=== PATIENT | male | born 1975 | race Caucasian/White ===

== ENCOUNTER 2024-07-10 10:30 | Outpatient (CLI) | payer BC, SELFPAY ==
[2024-07-10 18:39] LABS: Basophils # 0.1 K/mm3 (0-0.2); Eosinophils # 0.3 K/mm3 (0.0-0.4); Eosinophils % 3.2 % (0.1-12.0); Hemoglobin 16.2 g/dL (14.1-18.0); Lymphocytes # 2.3 K/mm3 (0.7-4.5); Lymphocytes % 23.5 % (10-50); Mean Corpuscular HGB Conc 32.3 g/dL (31.8-35.4); Mean Corpuscular Hemoglobin 30.9 pg (27.0-31.2); Mean Corpuscular Volume 95.7 fl (80-94); Mean Platelet Volume 11.5 fl (7.4-10.4); Monocytes # 0.3 K/mm3 (0.1-1.0); Monocytes % 2.6 % (1.7-9.3); Neutrophils # 6.9 K/mm3 (1.8-7.8); Neutrophils % 69.8 % (37.0-80.0); Platelet Count 90 K/mm3 (142-424); Red Blood Count 5.23 M/mm3 (4.60-6.20); Red Cell Distribution Width 14.2 % (11.5-17.5)
[2024-07-10 19:23] LABS: Alanine Aminotransferase 44 U/L (12-78); Albumin/Globulin Ratio 1.2 (1.1-1.8); Alkaline Phosphatase 92 U/L (38-126); Aspartate Amino Transferase 40 U/L (17-59); Bilirubin,Total 0.8 mg/dl (0.2-1.3); Blood Urea Nitrogen 16 mg/dl (9-20); Calcium 9.2 mg/dl (8.4-10.2); Carbon Dioxide 29 mmol/L (22.0-30.0); Chloride 103 mmol/L (98-107); Chol/HDL Ratio 3.9 (1-3.5); Cholesterol 228 mg/dl (140-200); Estimated Glomerular Filt Rate 90 ml/min (>60); GFR (African American) 109 ML/MIN (>60); Globulin 3.3 g/dL (1.3-3.2); Glucose 92 mg/dl (74-100); HDL Cholesterol 58 mg/dl (40-60); Sodium 139 mmol/L (136-145); Total Protein,Serum 7.3 g/dl (6.3-8.2); Triglycerides 135 mg/dl (30-150); VLDL Cholesterol 27 mg/dL (0-40)
[2024-07-10 19:34] LABS: Direct LDL Cholesterol 135.45 mg/dL (100-129)
[2024-07-10 19:39] LABS: 25-OH Vitamin D, Total 17.8 ng/mL (30-100)
[2024-07-10 19:40] LABS: T4 (Thyroxine) 9.8 ug/dl (5.53-11.0)
[2024-07-10 19:53] LABS: Thyroid Stimulating Hormone 1.61 uIU/mL (0.465-4.68)
[2024-07-19 22:07] LABS: Testosterone, Total, LC/MS 220 ng/dL (.)
== END 2024-07-10 23:59 | disposition home or self-care (01) ==
LOC: LAB.DROPOF 07-13 10:30
PROVIDERS: PCP Nurse Practitioner Family; Visit Provider Nurse Practitioner Family
DX: Z76.89 Persons encountering health services in other specified circumstances (principal)
CPT/HCPCS: 80050; 80053; 80061; 82306; 84403; 84436; 84443; 85025

== ENCOUNTER 2024-07-23 15:14 | Outpatient (CLI) | payer BC, SELFPAY ==
--- NOTE | 2024-07-23 15:19 | CA_ITS ---
APPROVED REPORT EXAM: Comprehensive 2D, Doppler, and color-flow Echocardiogram [employer] Courtesy Clerk: May Coreas, KEON, RVS Ht: 5 ft 9 in Wt: 300lbs BSA: 2.45 BP: 138/80 mmHg Indications: SOA, HTN, Asthma 2D Dimensions IVSd 1.33 cm LVEF (Visual) 50.70 % PWd 1.40 cm LVEF (Gordillo's) 57.10 % LVDd 4.62 cm LV Volume 111.30 mL LVDs 3.43 cm LV Volume Index 45.623182 mL/m2 M: 34 - 74 Aortic Root 3.05 cm LA Volume 65.50 mL Left Atrium 3.57 cm LA Volume Index 26.843329 mL/m2 (M/F) 16-34 RVID Base (AP4) 3.64 cm (M/F) 2.5-4.1 EF AP4 48.60 % LVOT 2.13 cm (M/F) 1.5-2.5 EF AP2 61.5 % EF BP 57.1 % GL Strain -18.8 % M-Mode Dimensions LVDd 4.62 cm (3.5-5.7) Ao Diam 3.07 cm (2.0-3.7) LVDs 3.43 cm (3.5-5.7) IVSd 1.33 cm (0.6-1.1) PWd 1.40 cm (0.6-1.1) EPSs 0.72 cm FS 25.80% TAPSE 2.54 (<1.7) LV Diastology E Decel Time 200 (160-240 msec) E/A Ratio 0.79 MED E' 8.1 (>= 7 cm/sec) MED A' 10.40 cm/s E'/MED E' Ratio 8.02 (<= 14) LAT E' 12.4 (>= 10 cm/sec) LAT A' 9.40 cm/s E/LAT E' Ratio 5.24 (<= 14) Aortic Valve LVOT Max 107.0 (70-110 cm/s) TORIE Index 0.94 cm2/m2 LVOT VTI 17.85 cm AoV Peak Terence. 154.0 (50-130 cm/s) AO Mean GR. 4.70 (<5 mmHg) AO VTI 27.5 (18-25 cm) TORIE (VTI) 2.31 (2.5-4.5 cm2) Mitral Valve MV E Max Terence. 65.0 (40-130 cm/s) MV A Velocity 83.0 (40-130 cm/s) E/A Ratio 0.79 MV Decel. Time 200 (160-240 ms) MV Mean Gr. 1.90 (<2mmHg) Tricuspid Valve TR P. Velocity 186.00 cm/s Left Ventricle The left ventricle is normal size. The left ventricular systolic function is normal. The left ventricular ejection fraction is within the normal range. There is increased LV wall thickness. There is normal LV segmental wall motion. Transmitral Doppler flow pattern suggests impaired LV relaxation. LVEF is 50-55%. Right Ventricle The right ventricle is mildly dilated. The right ventricular systolic function is normal. Atria The left atrium size is normal. The right atrium size is normal. There is no Doppler evidence of interatrial shunt. Aortic Valve The aortic valve opens well. There is no aortic valvular stenosis. No aortic regurgitation is present. Mitral Valve The mitral valve is normal in structure. No evidence of mitral valve stenosis. Trace mitral valve regurgitation noted. Tricuspid Valve The tricuspid valve leaflets are thin and pliable. Trace tricuspid regurgitation. There is insufficient TR jet to estimate RVSP. Pulmonic Valve The pulmonary valve is normal in structure. Trace pulmonic regurgitation. Great Vessels The aortic root is normal in size. The ascending aorta is not well-visualized. IVC is normal in size and collapses >50% with inspiration. Pericardium There is no pericardial effusion. Other Information Study Quality: Technically Difficult Conclusion Technically difficult study due to poor acoustic windows. Normal biventricular systolic function. Mild RV dilation. No significant valvular stenosis or regurgitation. Due to technically difficult study, future TTEs are suggested with ultrasound enhancing agent to better delineate the endocardial LV borders. Electronically signed by : Marcella Brock MD 07/29/2024 11:37:36
== END 2024-07-23 23:59 | disposition home or self-care (01) ==
LOC: RT 15:15
PROVIDERS: PCP Nurse Practitioner Family; Visit Provider Nurse Practitioner Family
DX: R06.02 Shortness of breath (principal); I10 Essential (primary) hypertension
CPT/HCPCS: 93306

== ENCOUNTER 2024-08-07 09:54 | Outpatient (CLI) | payer BC, SELFPAY ==
[2024-08-20 17:11] LABS: Testosterone, Total, LC/MS 144 ng/dL (.)
== END 2024-08-07 23:59 | disposition home or self-care (01) ==
LOC: LAB.DROPOF 08-10 09:54
PROVIDERS: PCP Nurse Practitioner Family; Visit Provider Nurse Practitioner Family
DX: R79.89 Other specified abnormal findings of blood chemistry (principal)
CPT/HCPCS: 84403

== ENCOUNTER 2024-11-16 13:38 | Outpatient (CLI) | payer BC, SELFPAY ==
--- NOTE | 2024-11-16 13:42 | XR_ITS ---
FINAL REPORT CLINICAL HISTORY: Left Hip Pain COMPARISON: None FINDINGS: AP and frog leg views of the left hip were obtained. There is no acute fracture or dislocation. Degenerative joint disease is present. Soft tissues are unremarkable. IMPRESSION: Degenerative joint disease, with no acute osseous abnormality of the left hip. Reviewed, Interpreted and Dictated by Scarlett Méndez MD Transcribed by Berkley Bingham Authenticated and [facility]
== END 2024-11-16 23:59 | disposition home or self-care (01) ==
LOC: RAD 13:40
PROVIDERS: PCP Nurse Practitioner Family; Visit Provider Physician Assistant
DX: M25.552 Pain in left hip (principal)
CPT/HCPCS: 73502

== ENCOUNTER 2025-01-26 11:02 | Outpatient (CLI) | payer BC, SELFPAY ==
--- NOTE | 2025-01-26 11:09 | XR_ITS ---
FINAL REPORT CLINICAL HISTORY: short of breath FINDINGS: 2 views of the chest were obtained . The heart is normal in size. The mediastinum is within normal limits. The lungs are underinflated but clear. There is no pneumothorax. Osseous structures are unremarkable. IMPRESSION: No acute cardiopulmonary process. Reviewed, Interpreted and Dictated by Kwabena Duran MD Transcribed by Karolina Haro Authenticated and [facility]
== END 2025-01-26 23:59 | disposition home or self-care (01) ==
LOC: RAD 11:03
PROVIDERS: PCP Internal Medicine; Visit Provider Internal Medicine
DX: R06.02 Shortness of breath (principal)
CPT/HCPCS: 71046

== ENCOUNTER → 2025-06-03 08:16 | Outpatient (CLI) | payer BC, SELFPAY | LOC: SL 08:16 | PROVIDERS: PCP Internal Medicine Pulmonary Disease; Visit Provider Internal Medicine Pulmonary Disease | DX: G47.33 Obstructive sleep apnea (adult) (pediatric) (principal); G47.36 Sleep related hypoventilation in conditions classified elsewhere | CPT/HCPCS: G0399 ==

== ENCOUNTER 2025-06-29 15:00 | Outpatient (CLI) | payer BC, SELFPAY ==
[2025-06-29] MEDS: ALBUTEROL 0.083% 2.5 MG/3 ML NEB IH (15:31)
--- NOTE | 2025-06-29 15:32 | PC.NURSE ---
PFT completed without incident. Albuterol 0.083% given via HHN, per written protocol, Pt tolerated tx well.
== END 2025-06-29 23:59 | disposition home or self-care (01) ==
LOC: RT 15:01
PROVIDERS: PCP Nurse Practitioner Family; Visit Provider Internal Medicine Pulmonary Disease
DX: R94.2 Abnormal results of pulmonary function studies (principal); R06.02 Shortness of breath; R06.09 Other forms of dyspnea
CPT/HCPCS: 94060; 94618; 94726; 94729